=== PATIENT | female | born 2000 | race Caucasian/White ===

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

== ENCOUNTER 2022-06-21 12:16 | Outpatient (REF) | payer MEDICAID, SELFPAY ==
[2022-06-25 00:01] LABS: HSV 2 PCR Negative (Negative)
[2022-06-25 08:05] LABS: HSV 1 PCR Positive (Negative)
== END 2022-06-21 12:17 | disposition home or self-care (01) ==
LOC: LBN 12:16
PROVIDERS: PCP Nurse Practitioner Family; Referring Provider Student in an Organized Health Care Education/Training Program; Visit Provider Student in an Organized Health Care Education/Training Program
DX: B00.52 Herpesviral keratitis (principal)
CPT/HCPCS: 87529

== ENCOUNTER 2022-09-22 09:38 | Emergency (ER) | payer MEDICAID, SELFPAY ==
[2022-09-22 09:42] VITALS: BP 120/69; PULSE 92; RESP 17; TEMP 36.7; O2SAT 100
--- NOTE | 2022-09-22 10:15 | DI.RAD_ITS ---
Exam(s) XR CHEST 2V PA LATERAL EXAM: XR CHEST 2V PA LATERAL CLINICAL HISTORY: cough fever TECHNIQUE: 2D digital imaging was performed. COMPARISON: No exams were available for comparison FINDINGS: HEART: Normal size. Aorta: Not dilated. PULMONARY VASCULATURE: Normal. LUNGS: Clear. PLEURAL SPACE: No pleural effusion or pneumothorax. BONE:Unremarkable for age. IMPRESSION: No acute abnormality. DATA REPOSITORY: RADIATION DOSE DELIVERED:
[2022-09-22] MEDS: Inhaler, Assist Device 1 EACH MC (10:17)
[2022-09-22] MEDS: Albuterol HFA 8 GM 60 PUFF INH IH (10:17)
[2022-09-22] MEDS: Ondansetron O.D.T. 4 MG TABEF PO (10:17)
[2022-09-22 10:23] LABS: Abs Immature Grans 0.03 10^3/uL (0.0-0.06); Absolute Basophil Count 0.02 10^3/uL (0.0-0.2); Absolute Eosinophil Count 0.11 10^3/uL (0.0-0.7); Absolute Lymphocyte Count 0.89 10^3/uL (1.2-3.4); Absolute Monocyte Count 0.66 10^3/uL (0.1-0.8); Absolute Neutrophil Count 6.93 10^3/uL (1.2-6.7); Basophils % 0.2; Eosinophils % 1.3; HCT 41.4 % (36.0-46.0); HGB 13.8 g/dL (11.2-15.7); Immature Grans % 0.3; Lymphocytes % 10.3; MCHC 33.3 % (32.0-36.0); MCV 93 fL (80-95); MPV 9.2 fL (8.0-11.0); Monocytes % 7.6; Neutrophils % 80.3; Platelet Count 398 10^3/uL (130-400); RBC 4.45 10^6/uL (3.93-5.22); RDW 11.7 % (11.7-14.6); RDW-SD 39.9 fL; WBC 8.64 10^3/uL (4.4-10.8)
[2022-09-22 10:24] LABS: Bilirubin Negative (Negative); Blood Trace-intact (Negative); Clarity Sl Cloudy (Clear); Glucose Negative (Negative); Ketones Negative (Negative); Leukocyte Esterase Negative (Negative); Nitrite Negative (Negative); Specific Gravity 1.015 (1.005-1.025); Urobilinogen 0.2 mg/dL (Up to 0.2)
[2022-09-22 10:32] LABS: Mono Screening Negative (Negative)
[2022-09-22 10:45] LABS: ALT 19 U/L (14-59); AST 19 U/L (15-37); Albumin 4.2 g/dL (3.4-5.0); Alkaline Phosphatase 64 U/L (46-116); Anion Gap 7.5 mmol/L (3-11); BUN 7 mg/dL (7-18); Bilirubin, Total 0.4 mg/dL (0.2-1.0); CO2 28.5 mmol/L (21.0-32.0); CREATININE 0.8 mg/dL (0.55-1.02); Calcium 9.5 mg/dL (8.5-10.1); Chloride 103 mmol/L (98-107); Estimated GFR 108.11 (mL/min/1.73m2); Glucose 107 mg/dL (74-106); Potassium 3.6 mmol/L (3.5-5.1); Sodium 139 mmol/L (136-145); Total Protein 8.4 g/dL (6.4-8.2)
[2022-09-22 11:00] LABS: WBC 0-2 HPF (0-5)
[2022-09-22 11:01] LABS: Bacteria Few HPF (Negative); C & S Indicated? No/Sq. Contamination; Casts Negative LPF (Negative); Crystals Negative HPF (Negative); Epithelial Cells Many HPF (Negative); Mucus Negative (Negative)
--- NOTE | 2022-09-22 11:04 | W.ED.GENAD ---
Discharge Plan Disposition Patient Disposition: Home Discharge Details Clinical Impression: Bronchitis Primary Care Provider: April Greenwood ED Provider: Rowena Flores Home Meds and New Rx's Prescriptions: New prednisone 20 mg tablet 40 mg PO DAILY Qty: 10 0RF ondansetron HCl 4 mg tablet 4 mg PO Q8H PRN (Reason: nausea and vomiting) 5 Days Qty: 15 0RF Continued ketoconazole 2 % shampoo 1 applic topical .QOD Qty: 120 3RF Rx Instructions: use every other day for 2 weeks Discharge Instructions Instructions: Acute Bronchitis (ED) Additional Instructions: Take prednisone as prescribed Take the inhaler, 2 puffs every 4-6 hours as needed for cough, wheeze, shortness of breath Take the Zofran as needed for nausea and vomiting Increase your fluid hydration Return earlier should you have new or worsening complaints Referrals: April Greenwood, [facility] [Primary Care Provider] - Discharge Data Discharge Date/Time-TO BE ENTERED AT DEPARTURE: 09/22/22 11:19 Medical Decision Making 22-year-old female presents with upper respiratory symptoms, will treat for bronchitis Zofran, steroids, and inhaler Diagnostic labs ordered at the request of mother, monitor, diagnostic labs, no leukocytosis, no acute abnormalities Feeling marked improvement at time of reassessment Negative Return precautions reviewed and patient expressed understanding HPI General Date/Time Provider Initiated Documentation: 09/22/22 09:49. HPI Narrative: This 22-year-old female presents with report of cough, intermittent hemoptysis, shortness of breath, nausea. Denies any fever or chills. Presents today secondary to persistent shortness of breath and nausea. Denies exogenous hormones, recent flights, surgeries, long drives. Denies any calf pain or swelling. Denies any known sick contacts but did just complete her first year in college. Denies any chance of . Related Data Home Medications Medication Instructions Recorded Confirmed ketoconazole 2 % shampoo 1 applic topical .QOD #120 mL 12/10/21 09/22/22 ondansetron HCl 4 mg tablet 4 mg PO Q8H PRN nausea and 09/22/22 vomiting 5 days #15 tabs prednisone 20 mg tablet 40 mg PO DAILY #10 tabs 09/22/22 Previous Rx's Medication Instructions Recorded ketoconazole 2 % shampoo 1 applic topical .QOD #120 mL 12/10/21 ondansetron HCl 4 mg tablet 4 mg PO Q8H PRN nausea and 09/22/22 vomiting 5 days #15 tabs prednisone 20 mg tablet 40 mg PO DAILY #10 tabs 09/22/22 Allergies Allergy/AdvReac Type Severity Reaction Status Date / Time No Known Allergies Allergy Verified 09/22/22 09:48 General Stated Complaint: RespSymp MEILY: 3 PFSH All Active Problems (Updated 09/22/22 @ 11:08 by KETURAH Martin) Bronchitis (Acute) Herpes keratitis of right eye (Acute) Medical History (Updated 09/22/22 @ 11:08 by KETURAH Martin) Eczema Family History Mother Chronic migraine Father Essential hypertension Heart disease Hyperlipidemia Other Chronic migraine other maternal relatives Heart disease MGF - Leaky valve MGM - leaky valve and Tumor in heart Hemochromatosis Maternal Uncle Myocardial infarction MGF - passed in 2005 Other Healthy adult on routine physical examination Social History Smoking/Tobacco Use Status: Never Smoking risk assessment performed?: Yes Alcohol Intake: never Drug use: Never Substance use type: does not use Education Level: high school Details: A--11th grade current occupation: 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 [employer] Pets and animals: Yes (2 cats) Pets and animals: cat(s) Seatbelt use: always Carbon monox detector in home: Yes Firearms in home: Yes Firearms unloaded and locked: Yes Exam Narrative Exam Narrative: Patient is alert, oriented, pupils equal round reactive to light and accommodation, lungs clear to auscultation bilaterally, cardiac rate rhythm regular, no abdominal tenderness, no pallor, alert and oriented x4, no peripheral edema, distal pulses intact Course Vital Signs Vital signs: Vital Signs Temperature 36.7 C 09/22/22 09:42 Pulse 92 H 09/22/22 09:42 Respiratory Rate 17 09/22/22 09:42 Blood Pressure 120/69 09/22/22 09:42 Pulse Oximetry 100 09/22/22 09:42 Temperature 36.7 C 09/22/22 09:42 Temperature Source Oral 09/22/22 09:42 Pulse 92 H 09/22/22 09:42 Respiratory Rate 17 09/22/22 09:42 Respiratory Effort Normal 09/22/22 09:45 Respiratory Depth Normal 09/22/22 09:45 Blood Pressure 120/69 09/22/22 09:42 Blood Pressure Position Sitting 09/22/22 09:42 Pulse Oximetry 100 09/22/22 09:42 Oxygen Delivery Method Room Air 09/22/22 09:42 Oxygen Flow Rate 0 09/22/22 09:42 Pain Level 0 09/22/22 09:42 Lab/Test Results Lab/Test Results: Laboratory Tests Range/Units 09/22/22 09/22/22 09/22/22 10:10 10:10 10:10 WBC (4.4-10.8) 10^3/uL 8.64 RBC (3.93-5.22) 10^6/uL 4.45 Hgb (11.2-15.7) g/dL 13.8 Hct (36.0-46.0) % 41.4 MCV (80-95) fL 93 MCH (27.0-33.0) pg 31.0 MCHC (32.0-36.0) % 33.3 RDW (11.7-14.6) % 11.7 Plt Count (130-400) 10^3/uL 398 MPV (8.0-11.0) fL 9.2 Immature Gran % 0.3 Neutrophils % 80.3 Lymphocytes % 10.3 Monocytes % 7.6 Eosinophils % 1.3 Basophils % 0.2 Nucleated RBC % (0.0-0.3) % 0.0 Absolute Neutrophils (1.2-6.7) 10^3/uL 6.93 H Absolute Lymphocytes (1.2-3.4) 10^3/uL 0.89 L Absolute Monocytes (0.1-0.8) 10^3/uL 0.66 Absolute Eosinophils (0.0-0.7) 10^3/uL 0.11 Absolute Basophils (0.0-0.2) 10^3/uL 0.02 Sodium (136-145) mmol/L 139 Potassium (3.5-5.1) mmol/L 3.6 Chloride (98-107) mmol/L 103 Carbon Dioxide (21.0-32.0) mmol/L 28.5 Anion Gap (3-11) mmol/L 7.5 BUN (7-18) mg/dL 7 Creatinine (0.55-1.02) mg/dL 0.8 Est GFR (CKD-EPI 2020) (mL/min/1.73m2) 108.11 Glucose (74-106) mg/dL 107 H Calcium (8.5-10.1) mg/dL 9.5 Total Bilirubin (0.2-1.0) mg/dL 0.4 AST (15-37) U/L 19 ALT (14-59) U/L 19 Alkaline Phosphatase (46-116) U/L 64 Total Protein (6.4-8.2) g/dL 8.4 H Albumin (3.4-5.0) g/dL 4.2 Urine Color (Yellow) Urine Clarity (Clear) Urine pH (5-8) Ur Specific [place] (1.005-1.025) Urine Protein (Negative) mg/dL Urine Ketones (Negative) mg/dL Urine Blood (Negative) Urine Nitrite (Negative) Urine Bilirubin (Negative) Urine Urobilinogen (Up to 0.2) mg/dL Ur Leukocyte Esterase (Negative) Urine RBC (0-2) HPF Urine WBC (0-5) HPF Ur Epithelial Cells (Negative) HPF Urine Crystals (Negative) HPF Urine Bacteria (Negative) HPF Urine Casts (Negative) LPF Urine Mucus (Negative) Ur Culture Indicated? Urine Glucose (Negative) mg/dL Monoscreen (Negative) Negative Range/Units 09/22/22 10:10 WBC (4.4-10.8) 10^3/uL RBC (3.93-5.22) 10^6/uL Hgb (11.2-15.7) g/dL Hct (36.0-46.0) % MCV (80-95) fL MCH (27.0-33.0) pg MCHC (32.0-36.0) % RDW (11.7-14.6) % Plt Count (130-400) 10^3/uL MPV (8.0-11.0) fL Immature Gran % Neutrophils % Lymphocytes % Monocytes % Eosinophils % Basophils % Nucleated RBC % (0.0-0.3) % Absolute Neutrophils (1.2-6.7) 10^3/uL Absolute Lymphocytes (1.2-3.4) 10^3/uL Absolute Monocytes (0.1-0.8) 10^3/uL Absolute Eosinophils (0.0-0.7) 10^3/uL Absolute Basophils (0.0-0.2) 10^3/uL Sodium (136-145) mmol/L Potassium (3.5-5.1) mmol/L Chloride (98-107) mmol/L Carbon Dioxide (21.0-32.0) mmol/L Anion Gap (3-11) mmol/L BUN (7-18) mg/dL Creatinine (0.55-1.02) mg/dL Est GFR (CKD-EPI 2020) (mL/min/1.73m2) Glucose (74-106) mg/dL Calcium (8.5-10.1) mg/dL Total Bilirubin (0.2-1.0) mg/dL AST (15-37) U/L ALT (14-59) U/L Alkaline Phosphatase (46-116) U/L Total Protein (6.4-8.2) g/dL Albumin (3.4-5.0) g/dL Urine Color (Yellow) Yellow Urine Clarity (Clear) Sl Cloudy Urine pH (5-8) 7.0 Ur Specific [place] (1.005-1.025) 1.015 Urine Protein (Negative) mg/dL Negative Urine Ketones (Negative) mg/dL Negative Urine Blood (Negative) Trace-intact H Urine Nitrite (Negative) Negative Urine Bilirubin (Negative) Negative Urine Urobilinogen (Up to 0.2) mg/dL 0.2 Ur Leukocyte Esterase (Negative) Negative Urine RBC (0-2) HPF 3-5 H Urine WBC (0-5) HPF 0-2 Ur Epithelial Cells (Negative) HPF Many Urine Crystals (Negative) HPF Negative Urine Bacteria (Negative) HPF Few Urine Casts (Negative) LPF Negative Urine Mucus (Negative) Negative Ur Culture Indicated? No/Sq. Contamination Urine Glucose (Negative) mg/dL Negative Monoscreen (Negative) POC- Test(urine) Negative
[2022-09-22 11:09] LABS: TSH (W/Ref FT4) 2.34 uIU/mL (0.36-3.74)
== END 2022-09-22 11:19 | disposition home or self-care (01) ==
PROVIDERS: Emergency Provider Physician Assistant; PCP Nurse Practitioner Family
DX: J40 Bronchitis, not specified as acute or chronic (principal)
CPT/HCPCS: 36415; 80053; 81025; 99283; 71046; 81003; 81015; 84443; 85025; 86308; 99284

== ENCOUNTER 2023-04-11 14:49 | Outpatient (REF) | payer MEDICAID, SELFPAY ==
[2023-04-11 17:31] LABS: Ferritin 116 ng/mL (8-252)
[2023-04-12 12:25] LABS: Hemoglobin S Screen Negative (Negative)
== END 2023-04-11 14:50 | disposition home or self-care (01) ==
LOC: NCHCN 14:49
PROVIDERS: PCP Nurse Practitioner Family; Visit Provider Nurse Practitioner Family
DX: Z00.00 Encounter for general adult medical examination without abnormal findings (principal); Z13.0 Encounter for screening for diseases of the blood and blood-forming organs and certain disorders involving the immune mechanism
CPT/HCPCS: 82728; 85660

== ENCOUNTER 2023-09-18 10:40 | Emergency (ER) | payer MEDICAID, SELFPAY ==
[2023-09-18 10:43] VITALS: BP 106/67; PULSE 78; RESP 12; TEMP 36.8; O2SAT 99
--- NOTE | 2023-09-18 11:36 | W.ED.GENAD ---
Discharge Plan Disposition Patient Disposition: Transfer-Acute Inpatient Care Specific Acute Inpt Facility: [facility] Discharge Details Clinical Impression: Redness of eye, right Primary Care Provider: Clarisa Odonnell ED Provider: Nash Arechiga Home Meds and New Rx's Prescriptions: No Action ketoconazole 2 % shampoo 1 applic topical .QOD Qty: 120 3RF Rx Instructions: use every other day for 2 weeks Discharge Instructions Additional Instructions: It is very important that upon discharge that you go straight to [facility] emergency department for examination by specialist. Referrals: [facility] [Outside] HPI General Mode of arrival: ambulatory. Date/Time Provider Initiated Documentation: 09/18/23 10:41. Limitations to Documentation: no limitations. Information obtained by: patient and RN notes reviewed. History of Present Illness 23 year old F presents to the emergency department with the chief complaint of left pupil dilation , described as moderate, Quality is described as aching, and is localized to the right (eye). Patient reports no radiation. Patient started experiencing this hour(s) (2) and it has been constant. No relieving factors improve symptom(s), No exacerbating factors reported . Patient notes no other symptoms.. Patient did receive the following treatments prior to arrival, other (otc eye drops ) Related Data Home Medications Medication Instructions Recorded Confirmed ketoconazole 2 % shampoo 1 applic topical .QOD #120 mL 12/10/21 09/18/23 Previous Rx's Medication Instructions Recorded ketoconazole 2 % shampoo 1 applic topical .QOD #120 mL 12/10/21 Allergies Allergy/AdvReac Type Severity Reaction Status Date / Time No Known Allergies Allergy Verified 09/22/22 09:48 General Stated Complaint: EyeProblem EMILY: 3 Review of Systems Constitutional Constitutional: Denies chills, Denies fever(s), Denies headache(s) and Denies weakness Eyes Eyes: Reports as per HPI, Denies blurry vision, Denies exophthalmos, Denies change in vision, Denies diplopia, Reports eye discharge, Reports irritation, Denies itchy eyes, Denies loss of peripheral vision, Denies loss of vision, Reports eye pain, Reports requires corrective lenses, Reports photophobia and Denies spots in vision ENT Ears, Nose, Mouth, and Throat: Denies dizziness, Denies headache(s), Denies nasal congestion and Denies sore throat Gastrointestinal Gastrointestinal: Denies nausea Neurologic Neurologic: Denies dizziness, Denies headache(s), Denies localized weakness, Denies loss of vision, Denies paresthesias and Denies weakness Allergic/Immunologic Allergic/Immunologic: Denies itchy eyes Exam Const General: cooperative, healthy appearing, no acute distress and well groomed Orientation: alert, awake and oriented x3 [facility] Head: normal to inspection Ears: hearing grossly normal bilaterally Mouth: oral mucosae normal and moist mucous membranes Throat: posterior oropharynx normal Eyes Visual Marie: normal visual marie by confrontation Alignment and Position: alignment normal Periorbital: periorbital findings normal Eyelids: eyelids normal Sclera: scleral abnormality right scleral injection Cornea: fluorescein used and other (Small circular defect noted in the 5 o'clock position) Pupils: not reactive on the right and pupil size on the right 2 and on the left 6 EOM: EOM intact bilaterally Direct ophthalmoscopy: photophobia present and photophobia (With examination of right eye) Neck Neck: normal visual inspection, full ROM and no meningeal signs Neuro General: patient alert, patient awake, patient oriented x3, gait normal, tone normal, moves all extremities, CN's II-XI intact bilaterally and not confused Cognition: normal cognition Speech: speech normal Motor: muscle tone normal throughout, no movement abnormalities noted and no fasciculations Sensory Exam: no sensory deficits noted Course Vital Signs Vital signs: Vital Signs Temperature 36.8 C 09/18/23 10:43 Pulse 78 09/18/23 10:43 Respiratory Rate 12 09/18/23 10:43 Blood Pressure 106/67 09/18/23 10:43 Pulse Oximetry 99 09/18/23 10:43 Temperature 36.8 C 09/18/23 10:43 Temperature Source Temporal Artery Scan 09/18/23 10:43 Pulse 78 09/18/23 10:43 Respiratory Rate 12 09/18/23 10:43 Respiratory Effort Normal, Non-Labored 09/18/23 10:51 Blood Pressure 106/67 09/18/23 10:43 Blood Pressure Position Sitting 09/18/23 10:43 Pulse Oximetry 99 09/18/23 10:43 Oxygen Delivery Method Room Air 09/18/23 10:43 Oxygen Flow Rate 0 09/18/23 10:43 Pain Level 0 09/18/23 10:43 Medical Decision Making Patient presenting to the emergency department for chief complaint of right eye redness and left pupil dilation. Patient denies any injury or trauma, drug abuse, headache, additional neurological symptoms. Does report that she left her contacts in for multiple days but took them out this morning when noticing the abnormality. Physical exam shows normal cranial nerve exam beyond nonresponding right pupil, significant injection of the right eye, EOMs intact and nonpainful, visual acuity equal bilateral, left pupil normal responsive to light, Anton-Pen was used and ocular pressure is as follows left eye 19 Right eye 11 - pupil constriction 2mm non dilating. Fluorescein was used and a small deficit 5o'clock from pupil. Patient was able to verify that the medication she took at home was brimonidine. Patient does have history of right eye keratitis Given ocular abnormality with no other obvious source did contact [facility] health and physical education professor and spoke with Dr. Parra. He requested that transfer of patient to their emergency department for specialist eye exam was warranted. Spoke with Dr. Logan who agreed to accept patient in transfer. Patient is otherwise stable and I do feel the patient can go by private vehicle. Patient and mother in agreement with this plan. Quality:SDOH Health Related Social Needs: No Data to Display PFSH All Active Problems (Updated 09/18/23 @ 14:02 by Nash Arechiga NP) Redness of eye, right (Acute) Herpes keratitis of right eye (Acute) Medical History Eczema Family History Mother Chronic migraine Father Essential hypertension Heart disease Hyperlipidemia Other Chronic migraine other maternal relatives Heart disease MGF - Leaky valve MGM - leaky valve and Tumor in heart Hemochromatosis Maternal Uncle Myocardial infarction MGF - passed in 2005 Other Healthy adult on routine physical examination Social History Smoking/Tobacco Use Status: Never Smoking risk assessment performed?: Yes Alcohol Intake: never Drug use: Never Substance use type: does not use Housing: house Education Level: high school Details: [employer]--11th grade current occupation: 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 [employer] Pets and animals: Yes (2 cats) Pets and animals: cat(s) Seatbelt use: always Carbon monox detector in home: Yes Firearms in home: Yes Firearms unloaded and locked: Yes Do you feel safe at home: Yes Do you feel safe in your relationship?: Yes
[2023-09-18] MEDS: Balanced Salt Solution 15 ML BTL OP (12:13)
[2023-09-18] MEDS: Tetracaine 0.5% 4 ML BTL OP (12:14)
[2023-09-18] MEDS: Fluorescein STRIPS 100/BOX 1 MG OP (12:14)
== END 2023-09-18 14:15 | disposition short-term general hospital (02) ==
PROVIDERS: Emergency Provider Nurse Practitioner Family; PCP Nurse Practitioner Family
DX: H57.11 Ocular pain, right eye (principal); H57.04 Mydriasis; H57.89 Other specified disorders of eye and adnexa
CPT/HCPCS: 99285

== ENCOUNTER 2023-12-27 17:17 | Outpatient (REF) | payer MEDICAID, SELFPAY ==
--- NOTE | 2023-12-27 14:30 | PAPFT_PTH ---
PATIENT: Maribel Jin LOC: [facility] U#:[id number] AGE/SX: 23/F ROOM: RE12/27/[address]: Esperanza Camara NP : 2000 BED: DIS: 12/27/2023 SPEC #: [id number] RECD: 12/27/23 17:22 STATUS: JOSE REAide #: [id number] MITCHELL: 12/27/23 14:[address]: Esperanza Camara NP DEPT: [facility] Cytology RECD BY: Rowena Cardona ENTERED: 12/27/23 17:22 SP TYPE: PAPFT OTHR DR: Clarisa Odonnell Tissues: 1 - CX/ENDOCX FOR PAP SMEARS Procedures: PAP THIN PREP/[facility]VM Screening Comments: [id number]
== END 2023-12-27 17:18 | disposition home or self-care (01) ==
LOC: LBN 17:17
PROVIDERS: PCP Nurse Practitioner Family; Visit Provider Nurse Practitioner Women's Health
DX: Z12.4 Encounter for screening for malignant neoplasm of cervix (principal)
CPT/HCPCS: 88142

== ENCOUNTER 2025-01-08 15:13 | Outpatient (REF) | payer MEDICAID, SELFPAY ==
[2025-01-10 13:18] LABS: Chlamydia Result Negative (Negative); GC Result Negative (Negative)
== END 2025-01-08 15:14 | disposition home or self-care (01) ==
LOC: LBN 15:13
PROVIDERS: PCP Nurse Practitioner Family; Visit Provider Nurse Practitioner Women's Health
DX: Z11.3 Encounter for screening for infections with a predominantly sexual mode of transmission (principal)
CPT/HCPCS: 87491; 87591

== ENCOUNTER 2025-04-22 16:14 | Outpatient (REF) | payer MEDICAID, SELFPAY | END 2025-04-22 16:15 | disposition home or self-care (01) | LOC: NCHCN 16:14 | PROVIDERS: PCP Nurse Practitioner Family; Visit Provider Nurse Practitioner Family | DX: N89.8 Other specified noninflammatory disorders of vagina (principal) | CPT/HCPCS: 87480; 87510; 87660 ==